=== PATIENT | male | born 1990 | race African-American/Black ===

== ENCOUNTER 2020-03-10 13:53 | Emergency (ER) | payer SELFPAY ==
[2020-03-10] MEDS ORDERED: Ketorolac 30 MG/ML SDV IVPUSH ONE (14:27)
[2020-03-10] MEDS ORDERED: Sodium Chloride 0.9% 10 ML Syringe FLUSH PRN (14:27)
[2020-03-10] MEDS ORDERED: Ondansetron 4 MG/2 ML SDV IVPUSH ONE (14:27)
[2020-03-10] MEDS ORDERED: Sodium Chloride 0.9% 1,000 ML IV SCH (14:30)
--- NOTE | 2020-03-10 14:44 | EDM.PDOC ---
ED HPI GENERAL MEDICAL PROBLEM - General Chief Complaint: Gastrointestinal Problem Stated Complaint: CHILLS, VOMITTING, HEADACHE Time Seen by Provider: 03/10/20 14:35 Source of Information: Reports: Patient History Limitations: Reports: No Limitations - History of Present Illness INITIAL COMMENTS - FREE TEXT/NARRATIVE: Patient is a 29-year-old male who presents to the ER with acute onset of headache, nausea, and vomiting. Patient states that about an hour and a half prior to arrival he ate a [place] yogurt and took a tablespoon of "black seed oil " which he purchased at [facility]. He states that the yogurt tasted normal and was not sour. He states that shortly thereafter he had to stop to have a bowel movement. He stated that his bowel movement was initially formed, however towards the end it became more loose. Shortly thereafter he developed an episode of vomiting as well as a headache. He had some chills associated with this. Prior to an hour and a half ago he was feeling well. He denies any abdominal cramping or pain. He has had no respiratory complaints or fever for the last few days. He recently started taking the "black seed oil" about 2 days ago. Treatments MAGAZINE KEEPER: Reports: Other (see below) Other Treatments MAGAZINE KEEPER: BC relief (powder) Headache Pain Score (Numeric/FACES): 8 - Related Data Allergies Allergy/AdvReac Type Severity Reaction Status Date / Time Sulfa (Sulfonamide Allergy Hives Verified 03/10/20 14:25 Antibiotics) Home Meds: Home Meds Ondansetron [Zofran ODT] 4 mg PO Q6H PRN #10 tab.dis 03/10/20 [Rx] Past Medical History - Past Surgical History Musculoskeletal Surgical History: Reports: Other (See Below) Other Musculoskeletal Surgeries/Procedures:: meniscus repair Social & Family History - Tobacco Use Smoking Status *Q: Never Smoker - Caffeine Use Caffeine Use: Reports: None - Recreational Drug Use Recreational Drug Use: No ED ROS GENERAL - Review of Systems Review Of Systems: Comprehensive ROS is negative, except as noted in HPI. ED EXAM, GI/ABD - Physical Exam Exam: See Below General Appearance: Alert, WD/WN, No Apparent Distress Respiratory/Chest: No Respiratory Distress, Lungs Clear, Normal Breath Sounds, No Accessory Muscle Use, Chest Non-Tender Cardiovascular: Normal Peripheral Pulses, Regular Rate, Rhythm, No Edema, No Gallop, No JVD, No Murmur, No Rub GI/Abdominal Exam: Normal Bowel Sounds, Soft, Non-Tender, No Organomegaly, No Distention, No Abnormal Bruit, No Mass, Pelvis Stable Neurological: Alert, Oriented, CN II-XII Intact, Normal Cognition, Normal Gait, Normal Reflexes, No Motor/Sensory Deficits Psychiatric: Normal Affect, Normal Mood Skin Exam: Warm, Dry, Intact, Normal Color, No Rash Course - Vital Signs Last Recorded V/S: Last Vital Signs Temp 96.9 F 03/10/20 14:19 Pulse 60 03/10/20 14:19 Resp 18 03/10/20 14:19 BP 124/85 03/10/20 14:19 Pulse Ox 99 03/10/20 14:19 - Orders/Labs/Meds Orders: Active Orders 24 hr Category Date Time Status Peripheral IV Care [RC] . DIRECTED Care 03/10/20 14:28 Active Sodium Chloride 0.9% [Normal Saline] 1,000 ml Med 03/10/20 14:30 Active IV ASDIRECTED Sodium Chloride 0.9% [Saline Flush] Med 03/10/20 14:27 Active 10 ml FLUSH ASDIRECTED PRN Peripheral IV Insertion Adult [OM.PC] Stat Oth 03/10/20 14:27 Ordered Medication Orders Sodium Chloride (Normal Saline) 1,000 mls @ 999 mls/hr IV ASDIRECTED CESAR Last Admin: 03/10/20 14:51 Dose: 999 mls/hr Sodium Chloride (Saline Flush) 10 ml FLUSH ASDIRECTED PRN PRN Reason: Keep Vein Open Last Admin: 03/10/20 14:53 Dose: 10 ml Labs: Laboratory Tests 03/10/20 03/10/20 Range/Units 14:42 14:42 WBC 6.28 (4.23-9.07) K/mm3 RBC 5.19 (4.63-6.08) M/mm3 Hgb 15.2 (13.7-17.5) gm/dl Hct 45.4 (40.1-51.0) % MCV 87.5 (79.0-92.2) fl MCH 29.3 (25.7-32.2) pg MCHC 33.5 (32.2-35.5) g/dl RDW Std Deviation 40.7 (35.1-43.9) fL Plt Count 184 (163-337) K/mm3 MPV 9.4 (9.4-12.3) fl Neut % (Auto) 72.2 H (34.0-67.9) % Lymph % (Auto) 20.4 L (21.8-53.1) % Peach % (Auto) 6.7 (5.3-12.2) % Eos % (Auto) 0.2 L (0.8-7.0) Baso % (Auto) 0.2 (0.1-1.2) % Neut # (Auto) 4.54 (1.78-5.38) K/mm3 Lymph # (Auto) 1.28 L (1.32-3.57) K/mm3 Peach # (Auto) 0.42 (0.30-0.82) K/mm3 Eos # (Auto) 0.01 L (0.04-0.54) K/mm3 Baso # (Auto) 0.01 (0.01-0.08) K/mm3 Sodium 138 (136-145) mEq/L Potassium 4.5 (3.5-5.1) mEq/L Chloride 103 (98-107) mEq/L Carbon Dioxide 28 (21-32) mEq/L Anion Gap 11.5 (5-15) BUN 15 (7-18) mg/dL Creatinine 1.2 (0.7-1.3) mg/dL Est Cr Clr Drug Dosing 97.61 mL/min Estimated GFR (MDRD) > 60 (>60) mL/min BUN/Creatinine Ratio 12.5 L (14-18) Glucose 107 H (74-106) mg/dL Calcium 8.6 (8.5-10.1) mg/dL Total Bilirubin 0.5 (0.2-1.0) mg/dL AST 28 (15-37) U/L ALT 68 H (16-63) U/L Alkaline Phosphatase 66 (46-116) U/L Total Protein 7.6 (6.4-8.2) g/dl Albumin 3.8 (3.4-5.0) g/dl Globulin 3.8 gm/dL Albumin/Globulin Ratio 1.0 (1-2) Meds: Medications Generic Name Dose Route Start Last Admin Trade Name Freq PRN Reason Stop Dose Admin Sodium Chloride 1,000 mls @ 999 mls/hr 03/10/20 14:30 03/10/20 14:51 Normal Saline IV 999 mls/hr ASDIRECTED CESAR Administration Sodium Chloride 10 ml 03/10/20 14:27 03/10/20 14:53 Saline Flush FLUSH 10 ml ASDIRECTED PRN Administration Keep Vein Open Discontinued Medications Generic Name Dose Route Start Last Admin Trade Name Freq PRN Reason Stop Dose Admin Ketorolac Tromethamine 30 mg 03/10/20 14:27 03/10/20 14:53 Toradol IVPUSH 03/10/20 14:28 30 mg ONETIME ONE Administration Ondansetron HCl 4 mg 03/10/20 14:27 03/10/20 14:51 Zofran IVPUSH 03/10/20 14:28 4 mg ONETIME ONE Administration - Re-Assessments/Exams Free Text/Narrative Re-Assessment/Exam: 03/10/20 15:33 hematology was grossly unremarkable. Pt states that he feels better after the medications given. I will discharge home with Zofran for nausea and general recommendations. Discharge instructions as documented. Departure - Departure Time of Disposition: 15:34 Disposition: Home, Self-Care 01 Condition: Fair Clinical Impression: Vomiting Headache Qualifiers: Headache type: unspecified Headache chronicity pattern: acute headache Intractability: not intractable Qualified Code(s): R51 - Headache - Discharge Information *PRESCRIPTION DRUG MONITORING PROGRAM REVIEWED*: No *COPY OF PRESCRIPTION DRUG MONITORING REPORT IN PATIENT JUSTINA: No Prescriptions: Ondansetron [Zofran ODT] 4 mg PO Q6H PRN #10 tab.dis PRN Reason: Nausea/Vomiting Instructions: Nausea and Vomiting, Adult Referrals: PCP,Not In Area [Primary Care Provider] - Forms: ED Department Discharge Additional Instructions: You were seen in the emergency department today for acute onset of headache, nausea, and vomiting. Blood work was completed and found to be normal. It is likely that you are suffering from viral gastroenteritis; however, it is possible that your symptoms are associated with the black seed oil you have been taking. Recommend that you stop the black seed oil and maintain a clear liquid diet for the next 24-48 hours. A prescription for Zofran has been sent to [facility] in [place] [facility] [place]. Use the medication as precribed for nausea. You may use tylenol or ibuprofen as needed for nausea. Return to ER as needed. Sepsis Event Note - Evaluation Sepsis Screening Result: No Definite Risk - Focused Exam Vital Signs: Vital Signs Temp Pulse Resp BP Pulse Ox 03/10/20 14:19 96.9 F 60 18 124/85 99 Date Exam was Performed: 03/10/20 Time Exam was Performed: 15:47 - My Orders Last 24 Hours: My Active Orders 03/10/20 14:27 Sodium Chloride 0.9% [Saline Flush] 10 ml FLUSH ASDIRECTED PRN Peripheral IV Insertion Adult [OM.PC] Stat 03/10/20 14:28 Peripheral IV Care [RC] . DIRECTED 03/10/20 14:30 Sodium Chloride 0.9% [Normal Saline] 1,000 ml IV ASDIRECTED - Assessment/Plan Last 24 Hours: My Active Orders 03/10/20 14:27 Sodium Chloride 0.9% [Saline Flush] 10 ml FLUSH ASDIRECTED PRN Peripheral IV Insertion Adult [OM.PC] Stat 03/10/20 14:28 Peripheral IV Care [RC] . DIRECTED 03/10/20 14:30 Sodium Chloride 0.9% [Normal Saline] 1,000 ml IV ASDIRECTED
== END 2020-03-10 16:05 | disposition home or self-care (01) ==
LOC: JD.ED 13:53
DX: R51 Headache (principal); R11.2 Nausea with vomiting, unspecified; Z88.2 Allergy status to sulfonamides
CPT/HCPCS: 36415; 80053; 85025; 96361; 96374; 96375; 99284; J1885; J2405; J7030